=== PATIENT | female | born 1940 | race Caucasian/White ===

== ENCOUNTER 2018-06-10 03:53 | Emergency (ER) | payer MEDICARE ==
[~2018-06-10] VITALS: Ht 167.6 cm; Wt 70.3 kg
[~2018-06-10 03:53] MED LIST: AMLO2.5T PO; ASP81TEC PO; CALC-656 PO; HCTZ12.5T PO; LVT.1T PO; MULT-418 PO
[2018-06-10] MEDS ORDERED: NITROGLYCERIN 0.4 MG SL TABS BTL 25'S SL ONE (04:05)
--- NOTE | 2018-06-10 04:14 | NUR ---
PT REPORTS "STRANGE FEELING" SEEING BRIGHT LIGHTS ET FEELING WARM ALL OVER. STATED "I THINK SHE'S HAVING AN ANXIETY ATTACK." BLOOD PRESSURE EVALUATED ET IS 65/38 AT THIS TIME. PT PLACED IN TRENDELENBERG ET DR DICK MADE AWARE.
[2018-06-10 04:15] LABS: BASOPHILS % (AUTO) 0 % (0-10); EOSINOPHILS # (AUTO) 0.2 10^3/uL (0.0-0.3); EOSINOPHILS % (AUTO) 2 % (0-10); HEMATOCRIT 42 % (35-52); HEMOGLOBIN 13.8 G/DL (11.5-16.0); LYMPHOCYTES # (AUTO) 1.7 X 10^3 (1.0-4.0); LYMPHOCYTES % (AUTO) 16 % (12-44); MEAN CORPUSCULAR HEMOGLOBIN 30 PG (25-34); MEAN CORPUSCULAR HGB CONC 33 G/DL (32-36); MEAN CORPUSCULAR VOLUME 93 FL (80-99); MEAN PLATELET VOLUME 10.5 FL (7.4-10.4); MONOCYTES # (AUTO) 1.1 X 10^3 (0.0-1.0); MONOCYTES % (AUTO) 10 % (0-12); NEUTROPHILS # (AUTO) 7.7 X 10^3 (1.8-7.8); NEUTROPHILS % (AUTO) 72 % (42-75); PLATELET COUNT 204 10^3/uL (130-400); RED CELL DISTRIBUTION WIDTH 13.2 % (10.0-14.5); WHITE BLOOD COUNT 10.6 10^3/uL (4.3-11.0)
[2018-06-10] MEDS ORDERED: NITROGLYCERIN 0.4 MG SL TABS BTL 25'S SL PRN (04:15)
[2018-06-10] MEDS ORDERED: NS IV 1000 ML 1,000 ML ONE (04:15)
--- NOTE | 2018-06-10 04:16 | ED Chest Pain ---
General Chief Complaint: Chest Pain Stated Complaint: CHEST PAIN,NAUSEA Source: patient, spouse Exam Limitations: no limitations History of Present Illness Date Seen by Provider: Jun 10, 2018 Time Seen by Provider: 03:56 Initial Comments Patient presents to ER by private conveyance with her and chief complaint that yesterday around 8:30 tonight o'clock she woke up with some pressure across her chest from left to right shoulder. She's had it before in the past 3 years couple times and it went away spontaneously. She has no history of coronary disease but she's never had it worked up. Does not see a levi maker or have any history of stress tests or heart catheterizations. She has a history of high blood pressure, hypokalemia, hypothyroidism. She does not smoke drink or use drugs. She does not diabetes or significant family history. Pressure is worse with laying down not with exertion. Deep inspiration did not make it worse. She does not have shortness of breath or cough. No fevers or chills. She did have some nausea when the pressure started. 2 hours ago she took 324 mg aspirin. Allergies and Home Medications Allergies Coded Allergies: Codeine (Verified Adverse Reaction, VIVID DREAMS, 01/04/12) Home Medications Amlodipine Besylate 2.5 Mg Tablet, 1 EACH PO DAILY, (Reported) Aspirin 81 Mg Tabec, 81 MG PO DAILY, (Reported) Famotidine 20 Mg Tablet, 20 MG PO BID Prescribed by: NALINI DICK on 06/10/1835 Hydrochlorothiazide 12.5 Mg Cap, 12.5 MG PO DAILY, (Reported) Levothyroxine Sodium 100 Mcg Tablet, 1 EACH PO DAILY, (Reported) Sucralfate 1 Gm Tablet, 1 GM PO QIDACHS Prescribed by: NALINI DICK on 06/10/18 0635 Patient Home Medication List Home Medication List Reviewed: Yes Review of Systems Review of Systems Constitutional: No chills, No dizziness EENTM: No Blurred Vision, No Double Vision Respiratory: Denies Cough, Denies Shortness of Air Cardiovascular: See HPI, Chest Pain (pressure mainly); Denies Edema, Denies Irregular Heart Rate, Denies Lightheadedness, Denies Palpitations, Denies Syncope Gastrointestinal: Denies Abdomen Distended, Denies Abdominal Pain, Denies Constipated, Denies Diarrhea; Nausea; Denies Vomiting Genitourinary: Denies Burning, Denies Discharge Musculoskeletal: No back pain, No joint pain Skin: No pruritus, No rash Psychiatric/Neurological: Denies Headache, Denies Numbness, Denies Paresthesia Past Yoyijfb-Dwiczt-Czfueo Hx Patient Social History Alcohol Use: Occasionally Uses Alcohol Beverage of Choice: Wine Recreational Drug Use: No Smoking Status: Never a Smoker Recent Foreign Travel: No Contact w/Someone Who Travel: No Immunizations Up To Date Date of Pneumonia Vaccine: Dec 24, 2010 Date of Influenza Vaccine: Dec 25, 2011 Physical Exam Vital Signs Vital Signs - First Documented 06/10/18 03:54 Temp 97.7 Pulse 89 Resp 18 B/P (MAP) 163/81 (108) Pulse Ox 97 O2 Delivery Room Air Capillary Refill : Less Than 3 Seconds Height, Weight, BMI Height: '" Weight: lbs. oz. kg; BMI Method:Stated General Appearance: No Apparent Distress, WD/WN HEENT: PERRL/EOMI, Pharynx Normal, Moist Mucous Membranes Neck: Full Range of Motion, Non Tender, Supple Respiratory: Lungs Clear, Normal Breath Sounds, No Accessory Muscle Use, No Respiratory Distress, Other (chest discomfort re-created by direct palpation.) Cardiovascular: Regular Rate, Rhythm, No Edema, Normal Peripheral Pulses Gastrointestinal: Non Tender, Soft Extremity: Normal Capillary Refill, Normal Inspection, No Pedal Edema Neurologic/Psychiatric: Alert, Oriented x3, No Motor/Sensory Deficits Skin: Normal Color, Warm/Dry Progress/Results/Core Measures Results/Orders Lab Results Laboratory Tests Test 06/10/18 04:03 06/10/18 06:19 Range/Units White Blood Count 10.6 4.3-11.0 10^3/uL Red Blood Count 4.55 4.35-5.85 10^6/uL Hemoglobin 13.8 11.5-16.0 G/DL Hematocrit 42 35-52 % Mean Corpuscular Volume 93 80-99 FL Mean Corpuscular Hemoglobin 30 25-34 PG Mean Corpuscular Hemoglobin Concent 33 32-36 G/DL Red Cell Distribution Width 13.2 10.0-14.5 % Platelet Count 204 130-400 10^3/uL Mean Platelet Volume 10.5 H 7.4-10.4 FL Neutrophils (%) (Auto) 72 42-75 % Lymphocytes (%) (Auto) 16 12-44 % Monocytes (%) (Auto) 10 0-12 % Eosinophils (%) (Auto) 2 0-10 % Basophils (%) (Auto) 0 0-10 % Neutrophils # (Auto) 7.7 1.8-7.8 X 10^3 Lymphocytes # (Auto) 1.7 1.0-4.0 X 10^3 Monocytes # (Auto) 1.1 H 0.0-1.0 X 10^3 Eosinophils # (Auto) 0.2 0.0-0.3 10^3/uL Basophils # (Auto) 0.0 0.0-0.1 10^3/uL Prothrombin Time 12.8 12.2-14.7 SEC INR Comment 1.0 0.8-1.4 Activated Partial Thromboplast Time 28 24-35 SEC Sodium Level 138 135-145 MMOL/L Potassium Level 3.7 3.6-5.0 MMOL/L Chloride Level 101 98-107 MMOL/L Carbon Dioxide Level 23 21-32 MMOL/L Anion Gap 14 5-14 MMOL/L Blood Urea Nitrogen 15 7-18 MG/DL Creatinine 0.86 0.60-1.30 MG/DL Estimat Glomerular Filtration Rate > 60 BUN/Creatinine Ratio 17 Glucose Level 126 H 70-105 MG/DL Calcium Level 9.6 8.5-10.1 MG/DL Corrected Calcium 9.4 8.5-10.1 MG/DL Magnesium Level 2.4 1.8-2.4 MG/DL Total Bilirubin 0.3 0.1-1.0 MG/DL Aspartate Amino Transf (AST/SGOT) 31 5-34 U/L Alanine Aminotransferase (ALT/SGPT) 27 0-55 U/L Alkaline Phosphatase 72 40-136 U/L Myoglobin 36.1 10.0-92.0 NG/ML Troponin I < 0.028 < 0.028 <0.028 NG/ML B-Type Natriuretic Peptide 17.1 <100.0 PG/ML Total Protein 7.5 6.4-8.2 GM/DL Albumin 4.3 3.2-4.5 GM/DL Amylase Level 110 25-125 U/L Lipase 53 8-78 U/L My Orders Orders - NALINI DICK Nitroglycerin 0.4 Mg Btl 25's (Nitrostat (06/10/18 04:05) Cbc With Automated Diff (06/10/18 04:09) Magnesium (06/10/18 04:09) Ekg Tracing (06/10/18 04:09) Cardiac Profile 1 (06/10/18 04:09) Comprehensive Metabolic Panel (06/10/18 04:09) Myoglobin Serum (06/10/18 04:09) Protime With Inr (06/10/18 04:09) Partial Thromboplastin Time (06/10/18 04:09) O2 (06/10/18 04:09) Monitor-Rhythm Ecg Trace Only (06/10/18 04:09) Lipid Panel (06/11/18 06:00) Nitroglycerin 0.4 Mg Btl 25's (Nitrostat (06/10/18 04:15) Saline Lock/Iv-Start (06/10/18 04:09) BNP (06/10/18 04:09) Ns Iv 1000 Ml (Sodium Chloride 0.9%) (06/10/18 04:15) Saline Lock/Iv-Start (06/10/18 04:20) Ns Iv 1000 Ml (Sodium Chloride 0.9%) (06/10/18 04:20) Chest 1 View, Ap/Pa Only (06/10/18 ) Amylase (06/10/18 05:03) Lipase (06/10/18 05:03) Ekg Tracing (06/10/18 05:21) Troponin I (06/10/18 06:00) Lidocaine 2% Viscous 15 Ml (Xylocaine Vi (06/10/18 05:30) Famotidine Tablet (Pepcid Tablet) (06/10/18 05:30) Antacid Suspension (Mylanta Suspension (06/10/18 05:30) Medications Given in ED Current Medications Medications Dose Ordered Sig/Twin Route Start Time Stop Time Status Last Admin Dose Admin Al Hydrox/Mg Hydrox/Simethicone 30 ml ONCE ONCE PO 06/10/18 05:30 06/10/18 05:31 DC 06/10/18 05:37 30 ML Lidocaine HCl 15 ml ONCE ONCE PO 06/10/18 05:30 06/10/18 05:31 DC 06/10/18 05:37 15 ML Nitroglycerin 0.4 mg UD PRN SL 06/10/18 04:15 06/10/18 04:07 0.4 MG Vital Signs/I&O 06/10/18 06/10/18 03:54 03:54 Temp 97.7 Pulse 89 Resp 18 B/P (MAP) 163/81 (108) Pulse Ox 97 O2 Delivery Room Air Room Air Progress Progress Note #1: Time: 04:15 Progress Note She's already had 324 mg aspirin so we'll just give her some nitroglycerin and a chest pain workup. No histories suggest pulmonary embolism to be very likely. Initial monitor glycerin dropped her blood pressure significantly so put her in Trendelenburg and give her a liter fluids IV. ED ACS 15 points.Low risk by the EDACS Score. If the patient also has: (1) EKG without new ischemic changes and (2) negative initial and 2-hour troponins, then this patient is safe for discharge to early outpatient follow-up investigation (or proceed to earlier inpatient testing). If EKG with ischemic changes or positive troponin, they are not low risk and require normal risk stratification. Progress Note #2: Time: 05:27 Progress Note The patient's discomfort has not really improved nor worsened. The nitroglycerin made no difference in her symptoms. She is having some tenderness in her epigastric region but no Il sign or masses palpable. We'll try GI cocktail. She does not have any mesenteric signs. Lipase and amylase were unremarkable. Plan to repeat EKG and troponin at 0600 Progress Note #3: Time: 06:29 Progress Note The GI cocktail improved her symptoms were put her on some Carafate and Pepcid. She says she did not like the way Prilosec made her feel in the past. 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 Initial ECG Impression Date: Jun 10, 2018 Initial ECG Impression Time: 03:59 Initial ECG Rate: 76 Initial ECG Rhythm: Normal Sinus Initial ECG Intervals: Normal Initial ECG Impression: Nonspecific Changes Initial ECG Comparisson: No Previous ECG Available Comment Mild [address] depression in lead to and the lateral leads V5 and V6. EKG : EKG Time: 06:07 Rate: 70 Rhythm: Normal Sinus Intervals: Normal ECG Comparisson: Unchanged ECG Impression: Normal Comment No significant ST elevation or depression. Diagnostic Imaging Diagonstic Imaging: Xray Plain Films/CT/US/NM/MRI: chest (1v) Comments No acute cardiopulmonary process noted. [facility], [place] NAME: JNAE GARCÍA [facility] REC#: [id number] PT STATUS: REG ER : 1940 PHYSICIAN: NALINI DICK MD ADMIT DATE: 06/10/18/ER Draft Date of Exam:06/10/18 CHEST 1 VIEW, AP/PA ONLY INDICATION: Chest pain, fracture. TECHNIQUE: Single view chest 4:52 AM. CORRELATION STUDY: None FINDINGS: Heart size enlarged. Asymmetric increased density of the right perihilar region as well as over the right heart margins. Left scot appearing unremarkable. The remaining left lung also appearing generally clear. Multiple overlying monitor leads are present. IMPRESSION: 1. Cardiac enlargement. Asymmetric infiltrate or edema suggested about the right perihilar and infrahilar region. This finding is somewhat nonspecific, may reflect underlying infiltrate. Would recommend short-term followup two-view chest imaging for reassessment. Dictated on workstation # [id number] Dict: 06/10/18 0607 Trans: 06/10/18 0630 BATOOL [id number] Interpreted by: RAMON BARTLETT DO Electronically signed by: Reviewed: Reviewed by Me Departure Impression Primary Impression: Gastritis Qualified Codes: K29.00 - Acute gastritis without bleeding Additional Impression: Chest tightness or pressure Disposition: 01 HOME, SELF-CARE Condition: Improved Departure-Patient Inst. Decision time for Depature: 06:57 Referrals: Vijaya XIE MD, REBECCA W MD (PCP) Primary Care Physician Patient Instructions: Chest Pain That Is Not Caused by the Heart (DC) Add. Discharge Instructions: Please follow-up with your levi maker of choice within the next week for outpatient consult and management. Start taking the Carafate 30 minutes prior to meals and at bedtime for the next 2 weeks at the same time you're taking Pepcid one capsule twice a day. Follow-up with your cotton bag clipper over the next 2-4 weeks to discuss your abdominal discomfort if it has not improved. Plan to have a repeat chest x-ray in the next week or 2 for resolution of the mild extra fluid seen on today's chest x-ray. If you begin to begin to have chest pain, shortness of breath, fevers and chills or other worrisome symptoms then you should return to the nearest ER for further evaluation and management. All discharge instructions reviewed with patient and/or family. Voiced understanding. Scripts Famotidine (Pepcid) 20 Mg Tablet 20 MG PO BID for 14 Days, #30 TAB 0 Refills Prov: NALINI DICK 06/10/18 Sucralfate (Carafate) 1 Gm Tablet 1 GM PO QIDACHS for 14 Days, #56 TAB 0 Refills Prov: NALINI DICK 06/10/18 NALINI DICK Jun 10, 2018 04:16
--- NOTE | 2018-06-10 04:18 | NUR ---
1L NS UP WO AT THIS TIME. B/P 78/49 AT THIS TIME.
[2018-06-10] MEDS ORDERED: NS IV 1000 ML 1,000 ML IV SCH (04:20)
--- NOTE | 2018-06-10 04:22 | NUR ---
PT REPORTS SHE IS FEELING BETTER AT THIS TIME. B/P 109/63 AT THIS TIME.
[2018-06-10 04:24] LABS: PROTHROMBIN TIME PATIENT 12.8 SEC (12.2-14.7)
[2018-06-10 04:32] LABS: ALANINE AMINOTRANSFERASE 27 U/L (0-55); ALBUMIN 4.3 GM/DL (3.2-4.5); ALKALINE PHOSPHATASE 72 U/L (40-136); BILIRUBIN,TOTAL 0.3 MG/DL (0.1-1.0); BUN/CREATININE RATIO 17; CALCIUM 9.6 MG/DL (8.5-10.1); CARBON DIOXIDE 23 MMOL/L (21-32); CHLORIDE 101 MMOL/L (98-107); CREATININE SERUM 0.86 MG/DL (0.60-1.30); GFR ESTIMATED > 60; GLUCOSE 126 MG/DL (70-105); MAGNESIUM 2.4 MG/DL (1.8-2.4); POTASSIUM 3.7 MMOL/L (3.6-5.0); SODIUM 138 MMOL/L (135-145); TOTAL PROTEIN 7.5 GM/DL (6.4-8.2)
[2018-06-10 04:39] LABS: MYOGLOBIN SERUM 36.1 NG/ML (10.0-92.0)
[2018-06-10 05:17] LABS: AMYLASE 110 U/L (25-125); LIPASE 53 U/L (8-78)
--- NOTE | 2018-06-10 05:24 | NUR ---
DR DICK AT BEDSIDE DISCUSSING LAB RESULTS W/ PT ET
[2018-06-10] MEDS ORDERED: ANTACID SUSP 30 ML UDC (MYLANTA) PO ONE (05:30)
[2018-06-10] MEDS ORDERED: FAMOTIDINE 20 MG (PEPCID) TABLET PO STA (05:30)
[2018-06-10] MEDS ORDERED: LIDOCAINE 2% VISCOUS 15 ML UDC PO ONE (05:30)
--- NOTE | 2018-06-10 06:08 | NUR ---
PT UP TO BR THEN REPEAT EKG ET TROPONIN PERFORMED
--- NOTE | 2018-06-10 06:31 | Diagnostic Imaging Report ---
INDICATION: Chest pain, fracture. TECHNIQUE: Single view chest 4:52 AM. CORRELATION STUDY: None FINDINGS: Heart size enlarged. Asymmetric increased density of the right perihilar region as well as over the right heart margins. Left scot appearing unremarkable. The remaining left lung also appearing generally clear. Multiple overlying monitor leads are present. IMPRESSION: 1. Cardiac enlargement. Asymmetric infiltrate or edema suggested about the right perihilar and infrahilar region. This finding is somewhat nonspecific, may reflect underlying infiltrate. Would recommend short-term followup two-view chest imaging for reassessment. Dictated by: Dictated on workstation # [id number]
[2018-06-10] MEDS ORDERED: SUCR1TAB36 PO (06:35)
[2018-06-10] MEDS ORDERED: FAMO-119 PO (06:35)
--- NOTE | 2018-06-10 06:51 | NUR ---
REPORT TO ROGERIO HIGGINBOTHAM
[2018-06-10 07:07] VITALS: BP 122/65
== END 2018-06-10 07:07 | disposition home or self-care (01) ==
LOC: EDUNIT# 03:53 → ER 03:55
DX: K29.70 Gastritis, unspecified, without bleeding (principal); R07.89 Other chest pain; E03.9 Hypothyroidism, unspecified; Z88.5 Allergy status to narcotic agent; Z79.82 Long term (current) use of aspirin
CPT/HCPCS: 36415; 71045; 80053; 82150; 83690; 83735; 83874; 83880; 84484; 85025; 85610; 85730; 93005; 93041